=== PATIENT | female | born 1935 | race Caucasian/White ===

== ENCOUNTER → 2017-05-16 | Outpatient (CLI) | payer MEDICARE, BC ==
[~2017-05-16] MED LIST: ALB18R INH; ALBUDR INH; ASPI-1471 PO; CALC-797 PO; CHOL200038 PO; FISH OIL 500 M500 MG PO; IBUP200C71 PO; LEVO-3 PO; LEVO125T77 PO; LEVO50TA86 PO; MULT1CAP59 PO; OMEG-11 PO; PNEU0.5D3 IM; RAL60 PO; RALO60TA12 PO; VIT-9 PO
--- NOTE | 2017-05-16 12:25 | RADIOLOGY IMAGING REPORT ---
[place] [facility] [place] Awa Conley : 1935 MR: [id number] V: [id number] EXAM DATE: ORDERING PHYSICIAN: ESTEFANIA RICHARD TECHNOLOGIST: [place] [facility] [place]: Awa Conley : 1935 Visit/Account:[id number] Date of Sevice: 05/16/2017 Carotid ultrasound Indication: Atrial fibrillation. Possible TIA 2 weeks ago. Comparison:None available Findings: On the right : Peak systolic velocity of the right common carotid artery is 88-108 cm/s Peak systolic velocity of the right internal carotid artery is 82-111 cm/s There is normal antegrade flow of the right vertebral artery. The right ICA/CCA ratio is 1.0 There is mild plaque seen in the bulb area of the carotid artery without other significant plaque laisha ntified. On the left: Peak systolic velocity of the left common carotid artery is 77-131 cm/s Peak systolic velocity of the left internal carotid artery is 75-106 cm/s There is normal antegrade flow of the left vertebral artery. The left ICA/CCA ratio is 1.1 There is mild plaque seen in the bulb area of the carotid artery without other significant plaque laisha ntified IMPRESSION: 1. No hemodynamically significant stenosis of the bilateral common carotid arteries and bilateral int ernal carotid arteries as above. Report Dictated By: Dale Bai at 05/16/2017 12:16 PM Report E-Signed By: Dale Bai at 05/16/2017 12:20 PM WSN:[id number]
== END ==
LOC: US 09:54
PROVIDERS: ATTEND Internal Medicine
DX: I65.23 Occlusion and stenosis of bilateral carotid arteries (principal)
CPT/HCPCS: 93880

== ENCOUNTER → 2017-12-30 | Outpatient (REF) | payer MEDICARE, BC ==
[~2017-12-30] MED LIST changes: +IBUP-136 PO; -IBUP200C71 PO
[2017-12-30 13:15] LABS: PLATELET COUNT, AUTOMATED 194 K/uL (150-450)
== END ==
PROVIDERS: ATTEND Nurse Practitioner Family
DX: R42 Dizziness and giddiness (principal)
CPT/HCPCS: 82040; 82247; 82310; 82374; 82435; 82565; 82947; 84075; 84132; 84155; 84295; 84450; 84460; 84484; 84520; 85025; 85379

== ENCOUNTER → 2018-02-07 | Outpatient (CLI) | payer MEDICARE, BC ==
--- NOTE | 2018-02-07 14:26 | RADIOLOGY IMAGING REPORT ---
[place] [facility] [place] NAME: BYRON JOHNSTON : [id number] MR: [id number] V: [id number] EXAM DATE: ORDERING PHYSICIAN: ESTEFANIA RICHARD TECHNOLOGIST: Keshia Gonzales PROCEDURE:BILATERAL DIGITAL SCREENING MAMMOGRAM WITH CAD ASSISTED INTERPRETATION & 3D TOMOSYNTHESIS COMPARISON:Prior mammograms 04/14/2016, 06/04/2014 & 05/17/2013. INDICATIONS:SCREENING FINDINGS: The breast tissue demonstrates scattered fibroglandular densities. There is no dominant mass, suspicious cluster of microcalcifications or persistent areas of architectural distortion. Stable benign appearing lymph nodes are noted in the lateral Left breast. DIAGNOSTIC CATEGORY 1--NEGATIVE. RECOMMENDATIONS: ROUTINE MAMMOGRAM AND CLINICAL EVALUATION IN 1 YR. IMPRESSION: BIRADS 1: Negative. Dictated by: Dale Hortno M.D. on 02/07/2018 at 12:50 Transcribed by: MÓNICA on 02/07/2018 at 13:39 Approved by: Dale Horton M.D. on 02/07/2018 at 14:25 [facility]
== END ==
LOC: MAMO 00:57
PROVIDERS: ATTEND Internal Medicine
DX: Z12.31 Encounter for screening mammogram for malignant neoplasm of breast (principal)
CPT/HCPCS: 77063; 77067

== ENCOUNTER 2018-02-09 08:21 | Outpatient (RCR) | payer MEDICARE, BC ==
--- NOTE | 2018-02-09 10:26 | PT INITIAL EVALUATION ---
MEDICAL DIAGNOSIS: dizziness TREATMENT DIAGNOSIS: same DATE OF ONSET: 02/10/16 SUBJECTIVE: Awa Conley presents to physical therapy with complaints of dizziness that has been presents for two years. She reports that 5 weeks ago, she went to urgent care since the dizziness was extremely severe. She reports that she was given fluids, which did not change the dizziness. She reports that the dizziness gets worse with vacuuming, brushing teeth, standing, and better with sitting. She has been told that the dizziness is due to dehydration but she feels like that it is not the case. She reports that the dizziness does not feel like it spin. She denies any pain. REHAB PROBLEM LIST: Decreased Balance Decreased Function Decreased ADL's PREVIOUS MEDICAL HISTORY: See EMR OCCUPATION: Retired OBJECTIVE: Posture: TTP: She demonstrates minimal B rounded shoulders, forward head, increased thoracic kyphosis, and decreased lumbar lordosis. Palpation: No TTP Special Tests: (-) OCULOMOTOR/VESTIBULAR TESTING: Spontaneous Nystagmus: Absent VOR Head Thrust (horizontal canal function): R: Negative, L: Negative Gaze- Evoked Nystagmus with fixation present:Absent VOR Head Thrust (posterior canal function): R: Negative, L: Positive Posterior Horizontal Head-Shaking Nystagmus ( - ) Gaze-Evoked Nystagmus with fixation suppressed: absent Smooth Pursuit Saccades VOR Cancellation: Normal POSITIONING TEST: Left Hallpike + Right Hallpike - Roll Test + on the L and potential on the R Mobility: Independent Gait: Normal gait mechanics and no deviation were noted ASSESSMENT: Pat will benefit from skilled physical therapy to address the listed impairments to improve function and QOL. After the examination, we are unsure if it is positional vertigo; however, we did replicate her symptoms with the L vestibular system; therefore, she was given an exercise to confirm whether or not it is positional vertigo. Short Term Goals 3 weeks: Pt will be able to move her head into cervical extension, cervical rotation to the R and L, and turn head in bed with 0/10 dizziness to improve function and QOL. 3 weeks: Pt will be able to perform supine to sit to standing transfers and ambulate with 0/10 dizziness to improve function and QOL. Patient's Goals able to move and do things without dizziness PLAN: Patient to be seen for Neuromuscular Re-ed Gait Trg/Balance Trg 2x/Week for 3 weeks If you have any questions, comments, or concerns about this report or plan, please contact me at . Thank you, Marco Hendricks, PT, DPT [facility]
== END 2018-02-09 18:00 | disposition home or self-care (01) ==
LOC: PT 08:21
PROVIDERS: ATTEND Internal Medicine
DX: R42 Dizziness and giddiness (principal)
CPT/HCPCS: 97162

== ENCOUNTER → 2018-03-31 | Outpatient (CLI) | payer MEDICARE, BC | LOC: US 07:06 | PROVIDERS: ATTEND Internal Medicine | DX: I51.7 Cardiomegaly (principal); I35.1 Nonrheumatic aortic (valve) insufficiency; I34.1 Nonrheumatic mitral (valve) prolapse; I34.0 Nonrheumatic mitral (valve) insufficiency; I36.1 Nonrheumatic tricuspid (valve) insufficiency; I37.1 Nonrheumatic pulmonary valve insufficiency | CPT/HCPCS: 93306 ==

== ENCOUNTER 2018-04-26 14:30 | Outpatient (RCR) | payer MEDICARE, BC ==
--- NOTE | 2018-04-03 13:34 | PT INITIAL EVALUATION ---
MEDICAL DIAGNOSIS: dizziness TREATMENT DIAGNOSIS: same DATE OF ONSET: 02/10/16 SUBJECTIVE: Awa Conley presents to physical therapy with complaints of dizziness that has been presents for two years. She reports that 10 weeks ago, she went to urgent care since the dizziness was extremely severe. She reports that she was given fluids, which did not change the dizziness. She reports that the dizziness gets worse with vacuuming, brushing teeth, standing, quick posture changes, and better with sitting. She has been told that the dizziness is due to dehydration but she feels like that it is not the case. She reports = that the dizziness does not feel like it spin. She denies any pain. REHAB PROBLEM LIST: Decreased Balance Decreased Function Decreased ADL's PREVIOUS MEDICAL HISTORY: See EMR OCCUPATION: Retired OBJECTIVE: Posture: TTP: She demonstrates minimal B rounded shoulders, forward head, increased thoracic kyphosis, and decreased lumbar lordosis. Palpation: No TTP Special Tests: (-) OCULOMOTOR/VESTIBULAR TESTING: Spontaneous Nystagmus: Absent VOR Head Thrust (horizontal canal function): R: Negative, L: Negative Gaze- Evoked Nystagmus with fixation present:Absent VOR Head Thrust (posterior canal function): R: Negative, L: Negative Posterior Horizontal Head-Shaking Nystagmus ( - ) Gaze-Evoked Nystagmus with fixation suppressed: absent Smooth Pursuit Saccades VOR Cancellation: Normal POSITIONING TEST: Left Hallpike - Right Hallpike - Roll Test - on the L and R Mobility: Independent Gait: Normal gait mechanics and no deviation were noted Balance: Firm surface, eyes opened or closed, narrow base of support or normal base of support: minimal to no sway. Compliant surface, narrow base, eyes closed: severe sway. Complaint surface, narrow base of support, and eyes opened: minimal to no sway. Other Information: Sitting BP: 152/98, Standing BP: 134/84, Standing BP after 2 minutes: 132/90, Standing BP after 4 minutes: 130/84. ASSESSMENT: Juliana will benefit from skilled physical therapy to address the listed impairments to improve function and QOL. After the examination, we are unsure if it is positional vertigo; however, we did replicate her symptoms with the B vestibular system; therefore, she was given an exercise to confirm whether or not it is positional vertigo. She consistent had increased dizziness with moving from R or L sidelying to sitting resulted in dizziness, which does not seem consistent with positional vertigo. Furthermore, she has demonstrated increased BP change with changing positions from sitting to standing, which could be a contributing factor to her dizziness. If not positional vertigo, we will perform ther ex targeting the dizziness to see if we could minimize or abolish her dizziness along with targeting her vestibular system when it is isolated. Short Term Goals 3 weeks: Pt will be able to move her head into cervical extension, cervical rotation to the R and L, and turn head in bed with 0/10 dizziness to improve function and QOL. 3 weeks: Pt will be able to perform supine to sit to standing transfers and ambulate with 0/10 dizziness to improve function and QOL. 6 weeks: Pt will demonstrate minimal sway when the vestibular system is isolated to improve function and QOL. Patient's Goals able to move and do things without dizziness PLAN: Patient to be seen for Neuromuscular Re-ed Gait Trg/Balance Trg 2x/Week for 6 weeks If you have any questions, comments, or concerns about this report or plan, please contact me at . Thank you, Marco Hendricks, PT, DPT MTDD
--- NOTE | 2018-04-27 16:15 | PT PLAN OF CARE ---
Physician: Shaggy Bull MD Patient is being seen: 1-2x/week Therapist: Marco Hendricks, PT, DPT Medical Diagnosis: dizziness Treatment Diagnosis: same Date of Onset: Date of Initial Evaluation: 04/03/18 Date patient was last seen: 04/26/18 Number of treatments: 3 Number of cancellations/No shows: 0 Short Term Goals 3 weeks: Pt will be able to move her head into cervical extension, cervical rotation to the R and L, and turn head in bed with 0/10 dizziness to improve function and QOL. 3 weeks: Pt will be able to perform supine to sit to standing transfers and ambulate with 0/10 dizziness to improve function and QOL. 6 weeks: Pt will demonstrate minimal sway when the vestibular system is isolated to improve function and QOL. Patient's Goals able to move and do things without dizziness PLAN: Patient to be seen for Neuromuscular Re-ed Gait Trg/Balance Trg Status of Patient's Goals: Not Met; did not progress Patient Compliance: Good Prognosis: Reasons for continuing therapy: This is a discharge note for Juliana Conley. She reports that the dizziness has not changed and continues to be random and is not very consistent. She reports that she was hoping it was positional vertigo; however, she reports that it has not gotten any better or worse; it is staying the same. Based on the examination and few treatment sessions that we had, it does not appear to be BPPV or postional vertigo and seems to be coming more from the central nervous system. However, when moving from sitting to standing her systolic blood pressure drops by 20 mmhg. Other than that, she demonstrates more central signs and symptoms. She will continue to perform exercises that often cause her dizziness to see if her body will get use to it. Other than that, she is independent and will be discharged from PT. (-) OCULOMOTOR/VESTIBULAR TESTING: Spontaneous Nystagmus: Absent VOR Head Thrust (horizontal canal function): R: Negative, L: Negative Gaze- Evoked Nystagmus with fixation present:Absent VOR Head Thrust (posterior canal function): R: Negative, L: Negative Posterior Horizontal Head-Shaking Nystagmus ( - ) Gaze-Evoked Nystagmus with fixation suppressed: absent Smooth Pursuit Saccades VOR Cancellation: Normal POSITIONING TEST: Left Hallpike - Right Hallpike - Roll Test - on the L and R Mobility: Independent Gait: Normal gait mechanics and no deviation were noted Balance: Firm surface, eyes opened or closed, narrow base of support or normal base of support: minimal to no sway. Compliant surface, narrow base, eyes closed: severe sway. Complaint surface, narrow base of support, and eyes opened: minimal to no sway. If you have any questions, please contact me at [phone]. Thank you, Marco Hendricks, PT, DPT [facility]
== END 2018-04-27 16:26 | disposition home or self-care (01) ==
LOC: PT 14:30
PROVIDERS: ATTEND Internal Medicine
DX: R42 Dizziness and giddiness (principal)
CPT/HCPCS: 97161